=== PATIENT | male | born 2000 | race Caucasian/White ===

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

== ENCOUNTER → 2021-02-13 07:51 | Outpatient (CLI) | payer BC, SELFPAY ==
--- NOTE | 2021-02-13 07:59 | CT_ITS ---
PROCEDURE: CT SINUS WO CON CLINICAL HISTORY: NASAL CONGESTION,DEVIATED SEPTUM COMPARISON: No exams were available for comparison TECHNIQUE: Axial images obtained with sagittal and coronal reformats. All CT scans at the facility use one or more dose reduction, viz: automated exposure control, ma/kV adjustment per patient size (including targeted exams where dose is matched to indication, i.e. head), or iterative reconstruction technique. FINDINGS: There is mild rightward nasal septal deviation. There is a prominent nasal septal spur projecting toward the right causing narrowing of the right nasal passage. There is minimal mucosal thickening the ethmoid sinuses in the inferior aspect of the left maxillary sinus. Minimal mucosal thickening is present also in the anterior aspect of the sphenoid sinus. No sinus air-fluid levels. The ostiomeatal units are patent. Unremarkable appearing TMJs. There is an oval 2 x 1 cm hyperdensity along the deep and right aspect of the mandible at the anterior body/parasymphyseal region deep to the right bicuspid and incisor 2. This is of unknown etiology. This may be due to prior dental work or soft tissue calcification. There is no obvious underlying mandibular destruction. Please correlate with direct visualization and palpation. There are few punctate areas of decreased attenuation in this region. IMPRESSION: 1. Mild to moderate rightward nasal septal deviation with prominent nasal spur projecting toward the right causing narrowing of the right nasal canal. 2. Minimal sinus disease. 3. There is an oval 2 x 1 cm hyperdensity along the deep and right aspect of the mandible at the anterior body/parasymphyseal region deep to the right bicuspid and canine. This is of unknown etiology. This may be due to prior dental work or heterotopic ossification. A large sialolith is felt to be less likely but not totally excluded. Other etiologies not excluded.. There is no obvious underlying mandibular destruction. Please correlate with direct visualization and palpation. There are few punctate areas of decreased attenuation in this region Dictated by: Ag Calderón MD 02/13/2021 09:07 Ag Calderón MD in [place] 02/13/2021 09:07
== END ==
PROVIDERS: PCP Internal Medicine; Visit Provider Otolaryngology
DX: J34.2 Deviated nasal septum (principal); R09.81 Nasal congestion
CPT/HCPCS: 70486

== ENCOUNTER → 2022-12-12 22:58 | Outpatient (CLI) | payer BC, SELFPAY | PROVIDERS: PCP Nurse Practitioner Family; Visit Provider Nurse Practitioner Family | DX: J02.9 Acute pharyngitis, unspecified (principal) | CPT/HCPCS: 87070 ==

== ENCOUNTER 2024-04-05 19:02 | Emergency (ER) | payer BC, SELFPAY ==
[2024-04-05 19:10] VITALS: BP 136/94; PULSE 74; RESP 20; TEMP 36.7; O2SAT 98; BMI 28.4
--- NOTE | 2024-04-05 19:16 | EXP.UTC ---
Discharge Plan Disposition Patient Disposition: Home, Self-Care Condition: Good Prescriptions Prescriptions: New aamifbtaparoeod-uuearsems-JI [Bromfed DM] 2-30-10 mg/5 mL Syrup 5 ml PO Q6H PRN (Reason: Cough) Qty: 240 0RF ondansetron 4 mg Tablet,Disintegrating 4 mg PO Q8H PRN (Reason: Nausea) Qty: 12 0RF Referrals Follow up/Referrals: Provider,Referral, MD [Primary Care Provider] - See instructions Activity Restrictions/Add. Instructions Additional Instructions/Restrictions: Drink plenty of fluids. Take tylenol or ibuprofen for pain or fever. Take the medications as directed. Follow up with your regular doctor. GO TO THE ER FOR ANY WORSENING SYMPTOMS Clinical Impressions Clinical Impression: Acute viral syndrome Instructions Patient Instructions: DI for Viral Syndrome Discharge ED Provider: Manny Aj [facility] General Stated complaint: body aches, headach,fever Time Seen by Provider: 04/05/24 19:16 History of Present Illness Provider Complaint: He states that for the past 1 day he has had a scratchy sore throat, body aches, chills, headache and malaise. Related Data Previous Rx's Medication Instructions Recorded vhsxktalrvahnfk-dqclicaimiowuyn-VL 5 ml PO Q6H PRN Cough #240 mL 04/05/24 2 mg-30 mg-10 mg/5 mL oral syrup (Bromfed DM) ondansetron 4 mg disintegrating 4 mg PO Q8H PRN Nausea #12 tabs 04/05/24 tablet Allergies Allergy/AdvReac Type Severity Reaction Status Date / Time No Known Allergies Allergy Verified 12/12/22 11:37 [facility] Disclaimer: The information contained in this section may have been updated after the patient was seen, as this information can be updated by other users. Surgical History (Updated 12/12/22 @ 12:00 by Fernanda Braga APRN) Hx of tonsillectomy Social History (Updated 12/12/22 @ 11:37 by Cat Ch MA) Smoking Status: Never smoker alcohol intake: never substance use type: denies use current occupational status: employed Travel in the last 8 weeks: None ROS Obtained: Yes All systems reviewed & no additional complaints except as documented Constitutional Constitutional: Reports chills and Reports fever(s) Eyes Eyes: Denies eye discharge ENT Ears, Nose, Mouth, and Throat: Reports as per HPI Cardiovascular Cardiovascular: Denies chest pain Respiratory Respiratory: Denies chest congestion and Reports cough Gastrointestinal Gastrointestingal: Reports nausea; Denies abdominal pain, constipation, cramping, diarrhea or vomiting Musculoskeletal Musculoskeletal: Denies arthralgias Integumentary/Breasts Skin/Breast: Denies rash Neurologic Neurologic: Denies paresthesias Physical Exam General General appearance: alert and in no apparent distress Head Head exam: atraumatic, normocephalic and normal inspection Eye Eye exam: Present normal appearance, PERRL and EOMI ENT ENT exam: Present normal exam, normal oropharynx, mucous membranes moist, TM's normal bilaterally and normal external ear exam Neck Neck exam: Present normal inspection, full ROM and trachea midline; Absent meningismus or lymphadenopathy Chest Chest inspection: Present normal inspection and symmetric chest wall rise; Absent tenderness Respiratory Respiratory exam: Present normal lung sounds bilaterally; Absent respiratory distress Cardiovascular Cardiovascular exam: Present regular rate and normal rhythm; Absent JVD Abdominal Exam Abdominal exam: Present soft and normal bowel sounds; Absent distention, tenderness or guarding Extremities Exam Extremities exam: Present normal inspection, full ROM and normal capillary refill; Absent calf tenderness Back Exam Back exam: Present normal inspection; Absent tenderness Neurological Exam Neurological exam: Present alert and oriented X3 Psychiatric Psychiatric exam: Present normal affect and normal mood Skin Skin exam: Present warm, dry, intact and normal color Lymphatic Lymphatic Findings: no adenopathy Medical Decision Making Medical Records Medical records reviewed: No I reviewed the patient's medical records. Don Inquiry Pt receiving controlled substance: No Lab Data Lab results reviewed: Yes I reviewed the patient's lab results.
[2024-04-05 19:25] LABS: Adenovirus,PCR Not Detected (NotDetected); Bordetella Pertussis Not Detected (NotDetected); Chlamydophila Pneumoniae, PCR Not Detected (NotDetected); Coronavirus 19, PCR Not Detected (NotDetected); Coronavirus 229E Not Detected (NotDetected); Coronavirus NL63 Not Detected (NotDetected); Coronavirus OC43 Not Detected (NotDetected); Coronovirus HKU1,PCR Not Detected (NotDetected); Human Metapneumovirus Not Detected (NotDetected); Influenza A, PCR Not Detected (NotDetected); Influenza AH1, 2009 Not Detected (NotDetected); Influenza AH1, PCR Not Detected (NotDetected); Influenza AH3,PCR Not Detected (NotDetected); Influenza B, PCR Not Detected (NotDetected); Mycoplasma Pneumoniae, PCR Not Detected (NotDetected); Parainfluenza 1, PCR Not Detected (NotDetected); Parainfluenza 2, PCR Not Detected (NotDetected); Parainfluenza 3, PCR Not Detected (NotDetected); Parainfluenza 4, PCR Not Detected (NotDetected); Respiratory Syncytial Virus Not Detected (NotDetected)
[2024-04-05 19:26] LABS: UTC Strep Screen (Rapid) Negative (Negative)
[2024-04-05 19:27] VITALS: BP 136/94; PULSE 74; RESP 20; TEMP 36.7; O2SAT 98
[2024-04-05 21:16] LABS: Rhinovirus/Enterovirus Detected (NotDetected)
--- NOTE | 2024-04-06 11:33 | PC.NURSE ---
PATIENT NOTIFIED OF RESPIRATORY PANEL RESULTS AT THIS TIME
== END 2024-04-05 19:31 | disposition home or self-care (01) ==
PROVIDERS: Emergency Provider Nurse Practitioner Family
DX: R51.9 Headache, unspecified (principal); B34.1 Enterovirus infection, unspecified; R07.0 Pain in throat
CPT/HCPCS: 87581; 87632; 87635; 87798; 87880; 99204; 99212; G0463